=== PATIENT | male | born 1945 | race Caucasian/White ===

== ENCOUNTER 2024-05-27 08:35 | Day surgery (SDC) | payer OTHER ==
[2024-05-22 12:49] VITALS: BMI 25.0
--- NOTE | 2024-05-26 08:05 | P.HPOR ---
History of Present Illness H&P Date: 05/26/24 Chief Complaint: Left shoulder pain and stiffness The patient is a 78-year-old male who presents with progressive left shoulder pain and stiffness for the past 10 months. He denies any specific injury. He's having pain with overhead use and at night. He's tried therapy in addition to medications without much relief. Review of Systems Per HPI Past Medical History Past Medical History: Coronary Artery Disease (CAD), Cancer, Diabetes Mellitus, Hyperlipidemia, Hypertension Additional Past Medical History / Comment(s): DM II, gout, Melanoma History of Any Multi-Drug Resistant Organisms: None Reported Past Surgical History: Coronary Bypass/CABG, Heart Catheterization With Stent, Tonsillectomy Additional Past Surgical History / Comment(s): has 3-4 Stents, Bilateral Carotid endarterectomy; CABG 1990; Left leg endarterectomy 8 years ago, cataract removal 2017 Past Anesthesia/Blood Transfusion Reactions: Postoperative Nausea & Vomiting (PONV) Date of Last Stent Placement:: 2002 Smoking Status: Former smoker - Past Family History Mother Family Medical History: Cancer, Hyperlipidemia Additional Family Medical History / Comment(s): from Lung CA Father Family Medical History: Cancer Additional Family Medical History / Comment(s): from Lung CA Brother(s) Additional Family Medical History / Comment(s): Two brothers with DM. One brother had open heart Sister(s) Family Medical History: Cancer Additional Family Medical History / Comment(s): Lung CA Medications and Allergies Home Medications Medication Instructions Recorded Confirmed Type Alogliptin Benzoate [Alogliptin] 25 mg PO DAILY 05/22/24 05/22/24 History Apixaban [Eliquis] 5 mg PO BID 05/22/24 05/22/24 History Aspirin [Adult Low Dose Aspirin EC] 81 mg PO DAILY 05/22/24 05/22/24 History Atorvastatin [Lipitor] 80 mg PO HS 05/22/24 05/22/24 History Empagliflozin [Jardiance] 5 mg PO DAILY 05/22/24 05/22/24 History Isosorbide Dinitrate 30 mg PO DAILY 05/22/24 05/22/24 History Metoprolol Tartrate [Lopressor] 100 mg PO BID 05/22/24 05/22/24 History Kingman-3/Dha/Epa/Fish Oil [Kingman-3 1 cap PO DAILY 05/22/24 05/22/24 History Fish Oil 1,000 mg Sfgl] allopurinoL 300 mg PO DAILY 05/22/24 05/22/24 History glipiZIDE 5 mg PO DAILY 05/22/24 05/22/24 History lisinopriL [Zestril] 10 mg PO BID 05/22/24 05/22/24 History metFORMIN HCL 500 mg PO BID 05/22/24 05/22/24 History Allergies Allergy/AdvReac Type Severity Reaction Status Date / Time No Known Allergies Allergy Verified 05/22/24 12:30 Physical Examination - Shoulder left Tenderness with palpation: anterior, bicipital groove Pain: with abduction, with forward flexion ROM: forward flexion: 120 degrees (Active and passive) ROM: internal rotation: 0 ROM: external rotation: 20 degrees Crepitus with motion: Yes Strength: abduction: 5/5 Strength: external rotation: 5/5 Tests: internal impingement tests: positive, external impingment tests: positive Results The patient is a well-developed well-nourished male approximately 5 foot 7, 160 pounds of mesomorphic habitus. HEENT exam is nonfocal, neck is supple. He is tender about the left shoulder anterior glenohumeral joint. Moderate crepitus is noted. He has significant limitation of passive range of motion. His distal neurovascular exam appears intact in left upper extremity. - Diagnostic results Shoulder x-ray: image reviewed (Left shoulder x-rays show no definite osseous abnormality.) Assessment and Plan Assessment: Left shoulder adhesive capsulitis Peripheral vascular disease Plan: I talked to the patient at length regarding his condition along with treatment options. This point is quite symptomatic having pain and stiffness despite conservative measures. After a thorough discussion he opts to proceed with manipulation of the left shoulder under anesthesia. We will likely perform as an outpatient procedure utilizing IV sedation. Risks and benefits were discussed at length in layman's terms.
[~2024-05-27 08:35] MED LIST: LIDOCAINE 1% (10MG/ML) FOR IV START INTRADERMA PRN; Pre Op ABX Message 1 EACH MISC MISCELLANE ONE; fentaNYL (PF) 50 MCG/ML 2 ML AMP IV PRN; fentaNYL (PF) 50 MCG/ML 2 ML AMP IVP PRN
[2024-05-27 09:02] VITALS: TEMP 97.2
[2024-05-27 09:12] LABS: Glucose,Whole Blood 126 mg/dL (70-110)
[2024-05-27] MEDS: ONDANSETRON 4 MG/2 ML VIAL IVP ONE (09:25)
[2024-05-27] MEDS: LACTATED RINGERS 1,000 ML IV SCH (09:25)
[2024-05-27] MEDS: IV FLUID CONTINUATION 1,000 ML IV ONE (09:28)
[2024-05-27] MEDS ORDERED: fentaNYL (PF) 50 MCG/ML 2 ML AMP ONE (09:45)
[2024-05-27] MEDS ORDERED: PROPOFOL 10 MG/ML 20 ML VIAL IV ONE (09:45)
--- NOTE | 2024-05-27 09:53 | P.OP ---
Date of Procedure: 05/27/24 Preoperative Diagnosis: Left shoulder adhesive capsulitis Postoperative Diagnosis: Same Procedure(s) Performed: Manipulation under anesthesia left shoulder Anesthesia: MAC Surgeon: Grover Mc Estimated Blood Loss (ml): 0 Pathology: none sent Condition: stable Disposition: PACU Indications for Procedure: The patient is a 78-year-old male who presents with progressive left shoulder pain and stiffness despite conservative measures. Clinically he was noted have evidence of adhesive capsulitis. A discussion of the risks and benefits of manipulation under anesthesia was made with the patient. He opted to proceed. Risks of the procedure to include fracture, tendon rupture, possible recurrence of stiffness and need for subsequent procedures was discussed. Informed consent was obtained. Operative Findings: As below Description of Procedure: Patient was brought to the recovery room, and after induction of IV sedation I then gently manipulated his left shoulder. First with the arm at the side obtain full external rotation. Moderate adhesions were encountered. I then obtained full forward elevation. Again moderate adhesions were encountered. I felt I had adequate release at this point. The patient was then monitored until fully awake. No complications were incurred. There was no blood loss.
[2024-05-27 10:09] LABS: African American GFR (CKD) >90 (>60 ml/min/1.73 sqM); Anion Gap 5 mmol/L; Blood Urea Nitrogen 17 mg/dL (9-20); Carbon Dioxide 24 mmol/L (22-30); Chloride 110 mmol/L (98-107); Glucose 132 mg/dL (74-99); Non-African American GFR(CKD) 83 (>60 ml/min/1.73 sqM); Potassium 4.5 mmol/L (3.5-5.1); Sodium 139 mmol/L (137-145)
[2024-05-27 10:10] VITALS: RESP 16
[2024-05-27] MEDS: HYDROmorphone 0.5 MG/0.5 ML SYRINGE IVP PRN (10:13)
[2024-05-27] MEDS: HYDROcodone/APAP 5-325MG 1 EACH TAB PO STA (10:58)
[2024-05-27 11:20] VITALS: BP 114/74; PULSE 67
== END 2024-05-27 11:34 | disposition home or self-care (01) ==
LOC: OR 08:35
PROVIDERS: ATTEND Orthopaedic Surgery
CPT/HCPCS: 23700; 80048